=== PATIENT | female | born 1945 | race African-American/Black ===

== ENCOUNTER → 2018-11-24 | Outpatient (CLI) | payer MEDICARE, BC ==
[2015-08-02 15:00] VITALS: BP 111/58
[~2018-11-24] MED LIST: ASPI1CPM PO; ATOR40TA59 PO; BISA5TAB4 PO; CALC667C6 PO; CLON0.2T PO; FURO40TA4 PO; GABA300C18 PO; GLIM4TAB2 PO; HYDR-2761 PO; HYDR-2868 PO; MELA1TAB2 PO; METO-239 PO; NIFE90TA9 PO; OMEP40CA5 PO; TRAM50TA PO; VALS1TAB18 PO
--- NOTE | 2018-11-24 17:24 | KCIC ---
Bilateral digital screening mammograms with 3-D tomosynthesis: Reason for examination: Routine screening. Comparison is made to previous studies dated 08/29/2015 and 07/25/2014. Bilateral mammograms in CC and oblique projections were obtained with 2-D imaging and 3-D tomosynthesis imaging on a [employer] unit and reviewed on the workstation. Interpretation was made with the benefit of CAD. The skin and nipples show no abnormalities. No abnormal axillary lymph nodes are seen. The breast parenchyma is predominantly fatty. (Breast density: Category A.) There are no dominant masses, suspicious calcifications or architectural distortion. There are vascular calcifications seen bilaterally. Impression: No evidence of malignancy. Recommend routine screening. BI-RAD Category 1: Negative. "Our facility is accredited by the [employer] Mammography Program." This patient's information has been entered into a reminder system for the patient to be notified with the results of her examination and a target date for the next mammogram. Electronically signed by: Ashley Coffman MD (11/24/2018 5:19 PM) [id number]
== END | disposition home or self-care (01) ==
LOC: KCIC MAMMO 14:47
DX: Z12.31 Encounter for screening mammogram for malignant neoplasm of breast (principal)
CPT/HCPCS: 77063; 77067